=== PATIENT | female | born 1990 | race Caucasian/White ===

== ENCOUNTER 2017-09-20 23:45 | Inpatient (IN) | payer SELFPAY ==
[~2017-09-20] VITALS: Ht 160 cm; Wt 61.2 kg
[2017-09-21 00:43] LABS: BASOPHILS % (AUTO) 0.2 % (0.0-2.0); EOSINOPHILS % (AUTO) 0.3 % (0.0-7.0); HEMATOCRIT 38.1 % (31.2-41.9); LYMPHOCYTES # (AUTO) 0.5 K/uL (20.0-40.0); LYMPHOCYTES % (AUTO) 7.1 % (20.5-51.5); MEAN CORPUSCULAR HEMOGLOBIN 36.3 uug (24.7-32.8); MEAN CORPUSCULAR HGB CONC 34 g/dL (32.3-35.6); MEAN CORPUSCULAR VOLUME 106.3 fL (75.5-95.3); MONOCYTES # (AUTO) 0.6 K/uL (2.0-10.0); MONOCYTES % (AUTO) 8.4 % (0.0-11.0); NEUTROPHILS # (AUTO) 5.7 K/uL (1.8-8.9); PLATELET COUNT (AUTO) 108 K/uL (179-408); RED BLOOD CELL COUNT(AUTO) 3.58 MIL/uL (3.63-4.92); WHITE BLOOD COUNT (AUTO) 6.7 K/uL (3.8-11.8)
[2017-09-21] MEDS ORDERED: LORAZEPAM 2 MG/1 ML VIAL IV ONE (00:45)
[2017-09-21 00:54] LABS: ETHANOL < 3 MG/DL (0-0)
[2017-09-21 00:58] LABS: CARBON DIOXIDE 26 mmol/L (21-32); CHLORIDE 94 mmol/L (98-107); CREATININE 0.8 mg/dL (0.6-1.3); GLUCOSE 101 mg/dL (74-106); POTASSIUM 3.4 mmol/L (3.5-5.1); UREA NITROGEN, BLOOD 13 mg/dL (7-18)
[2017-09-21 01:11] LABS: THYROID STIMULATING HORMONE 3.479 mIU/mL (0.358-3.740)
[2017-09-21 01:13] LABS: ALANINE AMINOTRANSFERASE 152 U/L (14-59); ALKALINE PHOSPHATASE 69 U/L (50-136); ASPARTATE AMINOTRANSFERASE 225 U/L (15-37); BILIRUBIN,DIRECT 0.3 mg/dL (0.0-0.2); BILIRUBIN,TOTAL 0.8 mg/dL (0.2-1.0); TOTAL PROTEIN, SERUM 8.1 g/dL (6.4-8.2)
[2017-09-21 01:14] LABS: ACETAMINOPHEN < 2.0 ug/mL (10-30)
[2017-09-21] MEDS ORDERED: LORAZEPAM 2 MG/1 ML VIAL ONE (01:20)
[2017-09-21 01:26] LABS: *BILIRUBIN,URIN 1+ (NEGATIVE); *BLOOD, URINE NEGATIVE (NEGATIVE); *CLARITY,URINE SLIGHTLY CLOUDY (CLEAR); *COLOR,URINE DARK YELLOW (YELLOW); *KETONES,URINE 3+ (NEGATIVE); *PROTEIN,URINE 1+ (NEGATIVE); LEUKOCYTE ESTERASE ,URINE TRACE (NEGATIVE); NITRITE, URINE POSITIVE (NEGATIVE); UGLUCOSE NEGATIVE (NEGATIVE)
[2017-09-21 01:35] LABS: BACTERIA,URINE MODERATE /HPF (NONE SEEN); RBC,URINE NONE SEEN /HPF (0-3); SQUAMOUS EPITHELIAL CELL,UR FEW /HPF (NONE SEEN)
[2017-09-21 01:36] LABS: *AMPHETAMINE, URINE NEGATIVE (NEGATIVE); *BARBITURATE, URINE NEGATIVE (NEGATIVE); *CANNABINOID, URINE POSITIVE (NEGATIVE); *COCCAINE, URINE POSITIVE (NEGATIVE); *OPIATE, URINE NEGATIVE (NEGATIVE); *PHENCYCLIDINE SCREEN,URINE NEGATIVE (NEGATIVE)
--- NOTE | 2017-09-21 02:50 | NUR ---
Call placed to [facility] for potential transfer who did not accept the patient.
--- NOTE | 2017-09-21 03:21 | NUR ---
Pt. admitted to TELE, under care of Dr. Marinelli Belongs List completed
[2017-09-21 03:52] VITALS: BP 123/84
--- NOTE | 2017-09-21 04:27 | NUR ---
received a 27 years old female admitted for seizures. [facility]. voiding well. admission assessment done without any difficulty. Right #20 gauge heplock intact flushed and patent. denies any pain nor any discomfort. voiding without any difficulty. needs attended. vital signs stable. on telemetry patient in' NSR. no PMH. Patient is a heavy drinker, quit x3days ago. No seizures noted this shift. Dr Draper made aware of patient's admission.
[2017-09-21] MEDS ORDERED: ONDANSETRON 4 MG/2 ML VIAL IV PRN (07:00)
[2017-09-21] MEDS ORDERED: ACETAMINOPHEN 325 MG TABLET PO PRN (07:00)
[2017-09-21] MEDS ORDERED: MAG HYDROX/AL HYDROX/SIMETH 30 ML LIQUID UDC PO PRN (07:00)
[2017-09-21] MEDS ORDERED: LORAZEPAM 2 MG/1 ML VIAL IV PRN (07:00)
[2017-09-21] MEDS ORDERED: MAGNESIUM HYDROXIDE 30 ML LIQUID UDC PO PRN (07:00)
[2017-09-21] MEDS ORDERED: HYDROCODONE/APAP 5-325MG TABLET PO PRN (07:00)
--- NOTE | 2017-09-21 08:30 | NUR ---
Padded side rails, seizure precautions.
[2017-09-21 09:22] LABS: BASOPHILS # (AUTO) 0.1 K/uL (0.0-8.0); BASOPHILS % (AUTO) 0.9 % (0.0-2.0); EOSINOPHILS # (AUTO) 0.1 K/uL (0.0-0.7); EOSINOPHILS % (AUTO) 1.4 % (0.0-7.0); HEMOGLOBIN 12.5 g/dL (10.9-14.3); LYMPHOCYTES % (AUTO) 17.2 % (20.5-51.5); MEAN CORPUSCULAR HEMOGLOBIN 36.1 uug (24.7-32.8); MEAN CORPUSCULAR HGB CONC 34 g/dL (32.3-35.6); MEAN CORPUSCULAR VOLUME 106.3 fL (75.5-95.3); MONOCYTES # (AUTO) 0.9 K/uL (2.0-10.0); MONOCYTES % (AUTO) 15.4 % (0.0-11.0); NEUTROPHILS % (AUTO) 65.1 % (38.5-71.5); PLATELET COUNT (AUTO) 108 K/uL (179-408); RED BLOOD CELL COUNT(AUTO) 3.48 MIL/uL (3.63-4.92); WHITE BLOOD COUNT (AUTO) 6.1 K/uL (3.8-11.8)
--- NOTE | 2017-09-21 09:25 | NUR ---
Received report from [facility], client is in bed sleeping by easily arousable. No apparent signs and symptoms of SOB, pain, distress or discomfort. Bed is at lowest position for safety and call light within reach for assistance. Padded side rails for pre-cautions. Client stated no pain at this time. Alert, and oriented times 4. Able to express her needs.
[2017-09-21 09:27] LABS: CREATININE 0.7 mg/dL (0.6-1.3); POTASSIUM 3.4 mmol/L (3.5-5.1)
--- NOTE | 2017-09-21 09:30 | NUR ---
Patient endorsed to LEONOR Gotti. Patient is alert, in no distress. Safety measures in place, seizure precautions in place, call light within reach.
[2017-09-21] MEDS: POTASSIUM CHLORIDE 20 MEQ in IV NS 1000 ML 1,000 ML IV PRN ×2 (09:36→20:48)
[2017-09-21 09:58] LABS: MAGNESIUM 1.8 mg/dL (1.8-2.4); PHOSPHOROUS 3.8 mg/dL (2.5-4.9); TOTAL PROTEIN, SERUM 7.3 g/dL (6.4-8.2)
--- NOTE | 2017-09-21 11:10 | NUR ---
Client is noted having a male visitor at this time. Client stated no pain and everything is fine. Client is noted with no apparent signs and symptoms of SOB, pain, distress or discomfort
[2017-09-21 11:48] VITALS: BP 110/79
[2017-09-21 12:12] LABS: LYMPHOCYTES % (MANUAL) 18 % (20-40); MONOCYTES % (MANUAL) 11 % (2-10); NEUTROPHILS % (MANUAL) 71 % (42-75)
--- NOTE | 2017-09-21 12:55 | NUR ---
Client was assist in the bathroom. Client had BM accident. Client is washing herself up. Ayla was advise to give the client karen by Angy.
[2017-09-21] MEDS: NITROFURANTOIN/NITROFURAN MAC 100 MG CAPSULE PO SCH ×2 (13:15→20:47)
[2017-09-21] MEDS: LORAZEPAM 2 MG/1 ML VIAL IV PRN ×3 (13:15→21:22)
[2017-09-21 15:40] VITALS: BP 104/72
--- NOTE | 2017-09-21 18:36 | NUR ---
Client has been compliant with all nursing care. Client was seen by MESSENGER COPY in the early afternoon. Client states no pain, no SOB noted or discomfort or distress. Bed is at lowest position for safety and call light within reach for safety. IV running at 80cc/hr, IV line is patent and intact. No seizures noted throughout the shift. Possible discharge tomorrow
--- NOTE | 2017-09-21 19:25 | NUR ---
PT RECEIVED IN BED, AWAKE. FRIEND AT BEDSIDE. A/OX4. ABLE TO MAKE NEEDS KNOWN. V/S STABLE. IN NO ACUTE DISTRESS. NO C/O PAIN AT THIS TIME. IVF INFUSING. ON RA, TOLERATING WELL. AFEBRILE AT THIS TIME. SINUS RHYTHM AT 80BPM ON TELE MONITOR. SAFETY MEASURES IMPLEMENTED. CALL LIGHT WITHIN REACH.
[2017-09-21 20:00] VITALS: BP 102/63
[2017-09-21 23:03] VITALS: BP 119/74
[2017-09-22 04:00] VITALS: BP 117/75
--- NOTE | 2017-09-22 06:00 | NUR ---
END OF SHIFT NOTES. PT SLEPT WELL THROUGHOUT SHIFT. IN STABLE CONDITION. IVF INFUSING. ATIVAN ADMINISTERED ORDERED, FOR PT SEEN WITH SLIGHT SHAKING OF THE HANDS. ON RA. AFEBRILE THROUGHOUT THE NIGHT. SAFETY MAINTAINED. CALL LIGHT WITHIN REACH.
[2017-09-22 06:52] LABS: CARBON DIOXIDE 21 mmol/L (21-32); CHLORIDE 108 mmol/L (98-107); CREATININE 0.5 mg/dL (0.6-1.3); GLUCOSE 86 mg/dL (74-106); MAGNESIUM 1.6 mg/dL (1.8-2.4); PHOSPHOROUS 4.2 mg/dL (2.5-4.9); POTASSIUM 3.9 mmol/L (3.5-5.1); UREA NITROGEN, BLOOD 10 mg/dL (7-18)
[2017-09-22 06:59] LABS: BASOPHILS # (AUTO) 0.1 K/uL (0.0-8.0); BASOPHILS % (AUTO) 1.2 % (0.0-2.0); EOSINOPHILS # (AUTO) 0.1 K/uL (0.0-0.7); EOSINOPHILS % (AUTO) 2.2 % (0.0-7.0); HEMATOCRIT 35.4 % (31.2-41.9); HEMOGLOBIN 11.7 g/dL (10.9-14.3); LYMPHOCYTES # (AUTO) 1.3 K/uL (20.0-40.0); MEAN CORPUSCULAR HEMOGLOBIN 35.8 uug (24.7-32.8); MEAN CORPUSCULAR HGB CONC 33 g/dL (32.3-35.6); MEAN CORPUSCULAR VOLUME 107.9 fL (75.5-95.3); MONOCYTES # (AUTO) 0.7 K/uL (2.0-10.0); MONOCYTES % (AUTO) 15.6 % (0.0-11.0); NEUTROPHILS # (AUTO) 2.2 K/uL (1.8-8.9); PLATELET COUNT (AUTO) 105 K/uL (179-408); RED BLOOD CELL COUNT(AUTO) 3.28 MIL/uL (3.63-4.92); WHITE BLOOD COUNT (AUTO) 4.3 K/uL (3.8-11.8)
--- NOTE | 2017-09-22 07:10 | NUR ---
Received client in bed sleeping but easily arousable. No apparent signs and symptom of SOB, pain, distress or discomfort.. IV hydration running at this time. Bed at lowest position for safety and call light within reach for assistance
[2017-09-22] MEDS: NITROFURANTOIN/NITROFURAN MAC 100 MG CAPSULE PO SCH (08:26)
[2017-09-22] MEDS: LORAZEPAM 2 MG/1 ML VIAL IV PRN ×3 (08:26→13:59)
[2017-09-22] MEDS ORDERED: ESCITALOPRAM OXALATE 10 MG TABLET PO SCH (09:00)
[2017-09-22] MEDS: POTASSIUM CHLORIDE 20 MEQ in IV NS 1000 ML 1,000 ML IV PRN (10:04)
[2017-09-22 10:43] LABS: LYMPHOCYTES % (MANUAL) 40 % (20-40); MONOCYTES % (MANUAL) 10 % (2-10); NEUTROPHILS % (MANUAL) 50 % (42-75)
[2017-09-22 11:40] VITALS: BP 116/86
[2017-09-22] MEDS ORDERED: ESCI10TA PO (13:26)
[2017-09-22] MEDS ORDERED: NITR100C11 PO (13:26)
--- NOTE | 2017-09-22 13:40 | NUR ---
Discharge orders noted
[2017-09-22] MEDS ORDERED: MAGNESIUM OXIDE 400 MG TABLET PO ONE (14:00)
--- NOTE | 2017-09-22 15:30 | NUR ---
Client is being discharged with discharge orders from [facility]. Client agrees to decision and signs all discharge papers. Taxi voucher is provided for the client. Client is in stable condition. No seizures noted throughout today's shift. Client states no pain, noted with no apparent signs ans symptoms of SOB, pain, distress or discomfort. Client has been compliant with all nursing care. IV line removed. Client was wheelchair to lobby by nursing teacher.
== END 2017-09-22 15:05 | disposition home or self-care (01) | DRG 897 ==
LOC: ER 23:45 → TELE 09-21 03:15
PROVIDERS: ADMIT Internal Medicine; ATTEND Nurse Practitioner Acute Care
DX: F10.239 Alcohol dependence with withdrawal, unspecified (principal); E87.2 Acidosis; R56.9 Unspecified convulsions; N39.0 Urinary tract infection, site not specified; Y90.0 Blood alcohol level of less than 20 mg/100 ml; F12.90 Cannabis use, unspecified, uncomplicated; E87.6 Hypokalemia; R74.8 Abnormal levels of other serum enzymes; R74.0 Nonspecific elevation of levels of transaminase and lactic acid dehydrogenase [LDH]; F41.9 Anxiety disorder, unspecified; F32.9 Major depressive disorder, single episode, unspecified
CPT/HCPCS: 36415; 70030-TC; 70450; 71045; 72125; 80307; 83605; 83690; 83735; 84100; 84443; 84703; 85025; 85730; 87040; 87086; 93005; A4663; G0480; G0480-TC; J2060; J3480; J7030